=== PATIENT | female | born 1965 | race Caucasian/White ===

== ENCOUNTER 2021-02-27 16:04 | Emergency (ER) | payer BC ==
[~2021-02-27] VITALS: Ht 170.2 cm; Wt 109.0 kg
[2021-02-27 17:51] VITALS: BP 143/76
[2021-02-27] MEDS ORDERED: CEPH500C PO (17:55)
--- NOTE | 2021-02-27 17:56 | PHYS DOC ---
General Adult EDM: Chief Complaint: SKIN RASH/ABSCESS HPI: HPI: Patient is a 56 year old female who presents with a small erythematous, firm bump to the right lower extremity. Patient states she noticed the firm "bump" this morning, as it was a little bit itchy. As she has been walking and moving around throughout the day, became slightly painful and more red. Patient does report history of DVT approximately 20 years ago. She also had varicose vein ablation last year. She denies calf tenderness, unilateral leg swelling, shortness of breath, cough, chest pain, palpitations. Patient has no other complaints at this time. (THUY MC) Review of Systems: Review of Systems: ROS negative except as mentioned in HPI. (THUY MC) Physical Exam: PE: Constitutional: Well developed, well nourished, no acute distress, non-toxic appearance. Cardiovascular:Heart rate regular rhythm, no murmur. Lungs & Thorax: Bilateral breath sounds clear to auscultation. Skin: 2-1/2 cm x 2 and half centimeter firm and mildly erythematous lesion without fluctuance noted to the posterior will medial aspect of the right calf. Skin otherwise warm, dry, no erythema, no rash. Extremities: No posterior calf tenderness, no cyanosis, no clubbing, ROM intact, no edema, no unilateral lower extremity swelling. Neurologic: Alert and oriented x3, normal motor function, normal sensory function, no focal deficits noted. (THUY MC) Heart Score: C/O Chest Pain: No (THUY MC) Course & Med Decision Making: Course & Med Decision Making Pertinent Labs and Imaging studies reviewed. (See chart for details) Though patient has history of DVT and varicose veins, patient presentation today is not consistent or concerning for thromboembolism. Patient states she has an appointment with her primary care provider tomorrow. Patient will be provided today with a prescription for Keflex to treat early cellulitis. Patient is advised to take full course of antibiotics, unless otherwise instructed by her primary care provider. Additionally, she should return if she develops shortness of breath, palpitations, right lower extremity swelling or increased warmth and pain. Patient understands and is agreeable to discharge plan. (THUY MC) Dragon Disclaimer: Dragon Disclaimer: This electronic medical record was generated, in whole or in part, using a voice recognition dictation system. (THUY MC) Departure Departure: Impression: Primary Impression: Cellulitis of lower leg Disposition: HOME / SELF CARE / HOMELESS Condition: STABLE Referrals: FRANCINE CHAMBERLAIN PAC (PCP) Patient Instructions: Cellulitis, [id number] Additional Instructions: As discussed, please keep your appointment with your primary care doctor tomorrow. Please return to the emergency department if you have increased swelling or redness to your right leg or if you develop shortness of breath, chest pain or palpitations. Scripts Cephalexin (KEFLEX) 500 Mg Capsule 1 CAP PO BID for cellulitis for 7 Days, #14 CAP Prov: THUY MC 02/27/21 Attending Signature Attending Signature I have participated in the care of this patient and I have reviewed and agree with all pertinent clinical information above including history, exam, and recommendations. (CHRISTOPHER MANCUSO MD) THUY MC Feb 27, 2021 17:56 CHRISTOPHER MANCUSO MD Mar 03, 2021 19:56
== END 2021-02-27 18:02 | disposition home or self-care (01) ==
LOC: ER 16:04
DX: L03.115 Cellulitis of right lower limb (principal)
CPT/HCPCS: 99283